=== PATIENT | male | born 1970 | race Caucasian/White ===

== ENCOUNTER 2021-12-18 23:55 | Emergency (ER) | payer SELFPAY ==
[~2021-12-18] VITALS: Ht 165.1 cm; Wt 63.5 kg
--- NOTE | 2021-12-18 23:55 | NUR ---
PT BIB [facility], PREBOOK. TAKEN TO CHAIR.
[2021-12-19 00:05] VITALS: BP 133/92
[2021-12-19 00:11] VITALS: BP 133/92
--- NOTE | 2021-12-19 00:11 | NUR ---
Inna meier in EDM - 12/19/21 at 0012 by [facility] Patient discharged with v/s stable. Written and verbal after care instructions given and explained. Patient verbalized understanding. Ambulatory with steady gait. All questions addressed prior to discharge. Advised to follow up with PMD.
--- NOTE | 2021-12-19 00:20 | NUR ---
Dr. Arnold examining patient.
--- NOTE | 2021-12-19 00:30 | NUR ---
Patient discharged with v/s stable. Written and verbal after care instructions given and explained. Patient verbalized understanding. Police with in custody. All questions addressed prior to discharge. Advised to follow up with PMD.
== END 2021-12-19 00:30 ==
LOC: MED 23:55
DX: Z02.89 Encounter for other administrative examinations (principal); V49.88XA Car occupant (driver) (passenger) injured in other specified transport accidents, initial encounter; Y93.89 Activity, other specified; Y92.89 Other specified places as the place of occurrence of the external cause; Y99.8 Other external cause status
CPT/HCPCS: 99283